=== PATIENT | female | born 1935 | race Caucasian/White ===

== ENCOUNTER 2016-06-11 11:48 | Emergency (ER) | payer OTHER, MEDICAID ==
[~2016-06-11] VITALS: Wt 61.0 kg
[~2016-06-11 11:48] MED LIST: AMLO5TAB4 PO; ASPI-664 PO; LISI20TA11 PO
[2016-06-11 12:20] VITALS: TEMP 98
[2016-06-11] MEDS ORDERED: hydrALAzine 20 MG INJ IV ONE (13:30)
[2016-06-11 13:58] LABS: BASOPHILS % 0.4 % (0.0-2.0); EOSINOPHILS % 0.3 % (0.0-7.0); HEMOGLOBIN 13.9 g/dl (12.0-16.0); LYMPHOCYTES # 1.4 10^3/ul (0.8-2.9); LYMPHOCYTES % 15.6 % (15.0-51.0); MEAN CORPUSCULAR HEMOGLOBIN 29.4 pg (29.0-33.0); MONOCYTE # 0.3 10^3/ul (0.3-0.9); MONOCYTES % 3.5 % (0.0-11.0); NEUTROPHILS % 80.2 % (39.0-77.0); PLATELET COUNT 238 10^3/UL (140-440); RED BLOOD COUNT 4.72 10^6/ul (4.20-5.40); RED CELL DISTRIBUTION WIDTH 13.6 % (11.5-14.5); UNCORRECTED WBC 8.8 10^3/ul (4.8-10.8); WHITE BLOOD COUNT 8.8 10^3/ul (4.8-10.8)
[2016-06-11 14:01] LABS: CONDITION 1
[2016-06-11 14:05] LABS: INR 0.9; PROTIME 12.1 Sec (12.2-14.2); PT RATIO 0.9
[2016-06-11 14:06] LABS: PARTIAL THROMBOPLASTIN TIME 28.7 Sec (25.0-35.0)
[2016-06-11 14:10] LABS: CHLORIDE 101 mmol/L (97-110)
--- NOTE | 2016-06-11 14:10 | RADRPT ---
PROCEDURE: XR Chest. CLINICAL INDICATION: Blood pressure and chest pain. TECHNIQUE: Single frontal view of the chest was obtained COMPARISON: Chest x-ray 07/08/2015 06:23 p.m. FINDINGS: There are atherosclerotic calcifications in the aortic arch. The bony elements are normal. The sof t tissues are generous. The heart, pulmonary vasculature, lung burk and pleural spaces are normal. As a clip in the right upper quadrant. No changes noted compared to the prior study. Stable chest x-ray compared to 07/08/2015. IMPRESSION: 1. Atherosclerosis of the aortic arch. 2. Status post cholecystectomy. RPTAT:AAJJ Physician Teena Date Time Electronically viewed and signed by Ángel Balbuena Physician on 06/11/2016 14:10 ELIECER/
[2016-06-11 14:11] LABS: SODIUM 143 mmol/L (135-144)
[2016-06-11 14:13] LABS: CREATININE 0.74 mg/dl (0.44-1.00)
[2016-06-11 14:14] LABS: ANION GAP 18 (8-16); BLOOD UREA NITROGEN 19 mg/dl (7-20); CALCIUM 9.5 mg/dl (8.4-10.2); CARBON DIOXIDE 28 mmol/L (21-31); CREATINE KINASE 69 IU/L (23-200); GLUCOSE 104 mg/dl (70-220)
[2016-06-11 14:24] LABS: CK-MB 2.04 ng/ml (0.0-2.4)
[2016-06-11 14:32] LABS: TROPONIN-I < 0.012 ng/ml (0.00-0.12)
[2016-06-11 14:43] VITALS: BP 173/74; PULSE 102; RESP 18
--- NOTE | 2016-06-11 14:51 | ERD ---
ER Documentation Chief Complaint Date/Time DATE: 06/11/16 TIME: 14:49 Chief Complaint UNABLE TO CONTROL BP WITH CURRENT MEDS HPI This is a 30-year-old female presents to the emergency room for evaluation of high blood pressure. This patient is on amlodipine 5 mg daily, lisinopril 20 mg daily. She stated she was feeling mildly dizzy, denies any chest pain or shortness of breath or diaphoresis and went to a health clinic and they took her blood pressure and they stated it was elevated. The patient was sent to the emergency room at that point. Her blood pressure in the waiting room was 233 systolic. ROS All systems reviewed and are negative except as per history of present illness. Medications Home Meds Reported Medications Aspirin* (Aspirin* EC) 81 Mg Tablet.dr, 81 MG PO DAILY, TAB 07/08/15 Lisinopril* (Lisinopril*) 20 Mg Tablet, 20 MG PO DAILY, #30 TAB 07/08/15 Amlodipine Besylate* (Norvasc*) 5 Mg Tablet, 5 MG PO DAILY, TAB 07/08/15 Allergies Allergies: Coded Allergies: Penicillins (Verified Allergy, Mild, 06/11/16) PMhx/Soc History of Surgery: Yes (LEFT NECK UNK DATE.) Anesthesia Reaction: No Hx Neurological Disorder: No Hx Respiratory Disorders: No Hx Cardiac Disorders: Yes (HTN) Hx Psychiatric Problems: No Hx Miscellaneous Medical Probl: No Hx Alcohol Use: No Hx Substance Use: No Hx Tobacco Use: No Smoking Status: Never smoker Physical Exam Vitals Vital Signs Date Time Temp Pulse Resp B/P Pulse Ox O2 Delivery O2 Flow Rate FiO2 06/11/16 14:43 102 18 173/74 98 Room Air 06/11/16 13:00 233/95 06/11/16 12:20 98.0 97 18 228/90 98 Room Air 06/11/16 11:51 98.0 95 18 98 Physical Exam INITIAL VITAL SIGNS: Reviewed by me GENERAL: The patient is well developed and appropriate for usual state of health in no apparent distress HEENT: Bilateral lens replacements, pupils equal, round, and reactive to light. EOMI. There is no scleral icterus. NECK: C-spine is soft and supple, there is no meningismus. There is no cervical lymphadenopathy. LUNGS: Clear to auscultation bilaterally. There are no rales, wheezes or rhonchi. HEART: Regular rate and rhythm, no murmurs, clicks, rubs or gallops. ABDOMEN: Soft, non-tender, non-distended. There are bowel sounds in all four quadrants. No rebound or guarding. EXTREMITIES: There is no peripheral cyanosis or edema. No focal swelling or erythema. NEUROLOGICAL: The patient moves all four extremities with 5/5 strength. Cranial nerves II - XII are intact. Normal gait. Alert and oriented SKIN: There is no apparent rash or petechiae. HEME/LYMPHATIC: There is no evidence of excessive bruising or lymphedema. PSYCHIATRIC: The patient does not appear anxious or depressed. Result Diagram: 06/11/16 1341 06/11/16 1341 Results 24 hrs Laboratory Tests Test 06/11/16 13:41 Activated Partial Thromboplast Time 28.7Sec Anion Gap 18 Basophils # 0.010^3/ul Basophils % 0.4% Blood Urea Nitrogen 19mg/dl Calcium Level 9.5mg/dl Carbon Dioxide Level 28mmol/L Chloride Level 101mmol/L Creatine Kinase 69IU/L Creatine Kinase Index 3.0 Creatinine 0.74mg/dl Creatinine Kinase MB (Mass) 2.04ng/ml Eosinophils # 0.010^3/ul Eosinophils % 0.3% Glucose Level 104mg/dl Hematocrit 42.0% Hemoglobin 13.9g/dl INR International Normalized Ratio 0.90 Lymphocytes # 1.410^3/ul Lymphocytes % 15.6% Mean Corpuscular Hemoglobin 29.4pg Mean Corpuscular Hemoglobin Concent 33.0g/dl Mean Corpuscular Volume 89.0fl Mean Platelet Volume 10.0fl Monocytes # 0.310^3/ul Monocytes % 3.5% Neutrophils # 7.010^3/ul Neutrophils % 80.2% Nucleated Red Blood Cells # 0.010^3/ul Nucleated Red Blood Cells % 0.0/100WBC Platelet Count 30683^3/UL Potassium Level 4.0mmol/L Prothrombin Time 12.1Sec Prothrombin Time Ratio 0.9 Red Blood Count 4.7210^6/ul Red Cell Distribution Width 13.6% Sodium Level 143mmol/L Troponin I < 0.012ng/ml White Blood Count 8.810^3/ul Current Medications Medications (Trade) Dose Ordered Sig/Emily Route PRN Reason Start Time Stop Time Status Last Admin Dose Admin Hydralazine HCl (Apresoline) 10 mg ONCE ONCE IV 06/11/16 13:30 06/11/16 13:31 DC 06/11/16 13:59 Procedures/MDM EKG: Rate/Rhythm: [Normal Sinus Rhythm] QRS, ST, T-waves: [No changes consistent w/ acute ischemia] Impression: [No evidence of ischemia or arrhythmia] Chest X-ray 1V Interpreted by me: Soft Tissue: No acute abnormalities Bones: No acute abnormalities Mediastinum/Cardiac Silhouette/Lungs: [No acute abnormalities] This 80-year-old female presents to the emergency room for evaluation of high blood pressure. When I evaluated her she was denying any blurred vision, headache, chest pain, shortness of breath. She did have an elevated systolic blood pressure of 233. This patient is on amlodipine 5 mg, and lisinopril 20 mg daily. I did give this patient 10 mg of IV hydralazine. Pulmonary evaluation her blood pressure is 173/93. She is in no acute distress, and states she is feeling better at this time. This patient has no signs of endorgan damage at this time and I advised her to contact her primary care physician for medication adjustment. She states that she will call her primary care physician on Monday morning. She will be discharged home at this time. Advised to return to the ER if her symptoms worsen and she verbalized understanding. Patient's blood pressure was elevated (>120/80) but appears stable without evidence of hypertension emergency or urgency. The patient was counseled about the risks of hypertension and urged to pursue outpatient monitoring and therapy within a week with their primary care physician. Departure Diagnosis: Primary Impression: Uncontrolled hypertension Condition: Stable SHERIF ALVAREZ Jun 11, 2016 14:51
== END 2016-06-11 15:12 | disposition home or self-care (01) ==
LOC: E/R 11:48
DX: I10 Essential (primary) hypertension (principal); R07.9 Chest pain, unspecified; Z79.82 Long term (current) use of aspirin
CPT/HCPCS: 36415; 71010; 80048; 82550; 82553; 84484; 85025; 85610; 85730; 93005; 96374; 99285; J0360

== ENCOUNTER 2017-05-13 11:26 | Emergency (ER) | END 2017-05-13 15:13 | disposition home or self-care (01) ==